=== PATIENT | male | born 1960 | race African-American/Black ===

== ENCOUNTER 2019-04-01 11:24 | Inpatient (IN) | payer OTHER ==
[2019-04-01 13:00] VITALS: BMI 30.9
--- NOTE | 2019-04-01 13:46 | HP ---
CIWA Score - Admission Criteria OASAS Guidelines: Admission for Medically Managed Detox: Requires at least one of the followin. CIWA greater than 12 2. Seizures within the past 24 hours 3. Delirium tremens within the past 24 hours 4. Hallucinations within the past 24 hours 5. Acute intervention needed for co occurring medical disorder 6. Acute intervention needed for co occurring psychiatric disorder 7. Severe withdrawal that cannot be handled at a lower level of care (continued vomiting, continued diarrhea, abnormal vital signs) requiring intravenous medication and/or fluids 8. Admitting History and Physical - Admission Chief Complaint: Wants rehab from crack cocaine History of Present Illness: Pt is a 59 yo M with PMHx of DM, HTN, depression, psychosis, Pt had gone to [facility] for 2 weeks, felt suicidal and was referred to outpt in [facility]. Pt has still been using cocaine off and on despite being in the program Had been to [facility] re[facility] 2008, has not gone to other rehab Crack cocaine Last use was Saturday when he used 1 bag Smokes, does not sniff or skin pop Uses about 2-3 bags per day , 2 to 3 times a week Spends 20-30 dollars up to 80 dollars Started using at 27yo, off and on Recent relapse February 2019 after seeing someone spoke Clean from 2009- 2018 by going to meeting Tobacco Smokes 3-4 a day Has been smoking since 20 years Smoked 3-4 /day the whole Used to drink alcohol in 0s but has since stopped Does not do any other drugs 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, Cindy [facility] crack No problems with law PSHx;None All: None On abilify, depakote, amlodipine, metformin used all meds today FHX Has grown sons-35, 36yrs Has family- Sister, mother and brother Nobody with addictions Social Hx Lives alone at [address] [facility] adult home Goes to [facility], [address] [place], for the past 1 month Has a onsite case manager and gets his medications administered No suicidal or homicidal ideations 2006 popped pills in attempted suicide, he walked to [facility] and was sent elsewhere Mukesh Delarosa [facility] is psychiatrist- No recent HIV test or hepatitis No PPD History Source: Patient Admission ROS [facility] - HPI Allergies/Adverse Reactions: Allergies Allergy/AdvReac Type Severity Reaction Status Date / Time No Known Allergies Allergy Verified 04/01/19 12:47 - Ebola screening Have you traveled outside of the country in the last 21 days: No Have you had contact with anyone from an Ebola affected area: No Do you have a fever: No - Review of Systems Constitutional: No Symptoms Reported EENT: reports: No Symptoms Reported, Other (wears bifocal glasses, now broken) Respiratory: reports: No Symptoms reported Cardiac: reports: No Symptoms Reported GI: reports: No Symptoms Reported : reports: No Symptoms Reported Musculoskeletal: reports: No Symptoms Reported Integumentary: reports: No Symptoms Reported Neuro: reports: No Symptoms reported Hematology: reports: No Symptoms Reported Psychiatric: reports: No Sypmtoms Reported Patient History - Patient Medical History Hx Hypertension: Yes Hx Diabetes: Yes Hx Depression: Yes Other Medical History: Psychosis - Patient Surgical History Past Surgical History: No - Reproductive History Patient is a Female of Child Bearing Age (11 -55 yrs old): No - Smoking Cessation Smoking history: Current every day smoker Have you smoked in the past 12 months: Yes Hx Chewing Tobacco Use: No Initiated information on smoking cessation: Yes 'Breaking Loose' booklet given: 04/01/19 - Substance & Tx. History Hx Alcohol Use: No Hx Substance Use: Yes Substance Use Type: Cocaine Hx Substance Use Treatment: Yes - Substances abused Crack Other (specify): cocaine Substance route: Smoking Frequency: 3-6 times per week Amount used: 40 to 80 dollars Age of first use: 27 Date of last use: 03/29/19 Admission Physical Exam [facility] Vital Signs Vital Signs: Vital Signs - 24 hr 04/01/19 04/01/19 12:46 13:30 Temperature 97.4 F L 97.4 F L Pulse Rate 74 74 Respiratory 16 16 Rate Blood Pressure 129/71 129/71 - Physical General Appearance: Yes: No Apparent Distress HEENTM: Yes: Other (Poor dentition, missing upper teeth) Respiratory: Yes: Chest Non-Tender, Lungs Clear, Normal Breath Sounds Neck: Yes: Within Normal Limits Breast: Yes: Breast Exam Deferred Cardiology: Yes: Regular Rhythm, Regular Rate, S1, S2 Abdominal: Yes: Within Normal Limits Genitourinary: Yes: Within Normal Limits Back: Yes: Within Normal Limits Musculoskeletal: Yes: Within Normal Limits Extremities: Yes: Other (calluses, dry scaling, tinea unguum) Neurological: Yes: Within Normal Limits Integumentary: Yes: Within Normal Limits Lymphatic: Yes: Within Normal Limits - Diagnostic (1) Crack cocaine use Current Visit: Yes Status: Acute Cleared for Admission S - Detox or Rehab [facility] Level of Care: Medically Supervised Claeared for Rehab Admission: Yes Screened but not Admitted - Documentation of Visit Screened but not Admitted: No Breathalyzer - Breathalyzer Breathalyzer: 0 Urine Drug Screen - Test Device Lot number: [id number] Expiration date: 12/03/20 - Control Is test valid?: Yes - Results Drug screen NEGATIVE: No Urine drug screen results: ABDON-Cocaine Inpatient Rehab Admission - Rehab Decision to Admit Inpatient rehab admission?: Yes - Initial Determination Are CD services needed?: Yes Free of communicable disease: Yes Not in need of hospitalization: Yes - Rehab Admission Criteria Previous failed treatment: Yes Poor recovery environment: Yes Comorbidities: Yes Lacks judgement: Yes Patient is meeting Inpatient Rehab admission criteria:: Yes
[2019-04-01] MEDS ORDERED: IBUPROFEN 400 MG TABLET (FP) PO PRN (14:10)
[2019-04-01] MEDS ORDERED: MAG HYDROX/AL HYDROX/SIMETH 30 ML UNIT-DOSE CUP PO PRN (14:10)
[2019-04-01] MEDS ORDERED: P-EPHED 60MG/TRIPROLIDI 2.5MG TABLET PO PRN (14:10)
[2019-04-01] MEDS ORDERED: MAGNESIUM CITRATE 300 ML BOTTLE PO PRN (14:10)
[2019-04-01] MEDS ORDERED: guaiFENesin 200 MG/10 ML 10 ML UNIT-DOSE CUPS PO PRN (14:10)
[2019-04-01] MEDS ORDERED: MENTHOL/PHENOL 1 EACH UD MM PRN (14:10)
[2019-04-01] MEDS ORDERED: ACETAMINOPHEN 325 MG TABLET (FP) PO PRN (14:10)
[2019-04-01] MEDS ORDERED: NICOTINE POLACRILEX 2 MG GUM BUC PRN (14:10)
[2019-04-01] MEDS ORDERED: LOPERAMIDE HCL 2 MG CAPSULE PO PRN (14:10)
[2019-04-01] MEDS ORDERED: MAGNESIUM HYDROX 2400MG/30ML ORAL SUSPENSION 30 ML CUP PO PRN (14:10)
--- NOTE | 2019-04-01 14:19 | PN ---
Teaching Attending Note Name of Resident: Stephani Velásquez ATTENDING PHYSICIAN STATEMENT I saw and evaluated the patient. I reviewed the resident's note and discussed the case with the resident. I agree with the resident's findings and plan as documented. SUBJECTIVE: pt here requesting rehab from cocaine use , reprots relapse in february 2019 after 9 yr sobriety , had suicidal ideation after cocaine use and presented to [facility] ER , transferred to [facility] where he remaind x 2 weeks, states he was referred to outpt program afterwards [facility], he attended and continued use of cocaine 2- 3 x /week x 2 bags , w/ latest reported use 03/29/19 . reports he lives in adult home [facility] where meds are dispensed to him daily by staff and he is being monitored for blood glucose . PMHx : DM, HTN , depression denies current SI / HI Vital Signs - 24 hr 04/01/19 04/01/19 12:46 13:30 Temperature 97.4 F L 97.4 F L Pulse Rate 74 74 Respiratory 16 16 Rate Blood Pressure 129/71 129/71 OBJECTIVE: wnwd ASSESSMENT AND PLAN: Cocaine use , episodic use .
[2019-04-01 17:20] LABS: HEMATOCRIT 42.1 % (35.4-49); HEMOGLOBIN 13.7 GM/dL (11.7-16.9); MCH 33.3 pg (25.7-33.7); MCHC 32.6 g/dl (32.0-35.9); MEAN CELL VOLUME 102.3 fl (80-96); MEAN PLT VOLUME 7.7 fl (7.5-11.1); PLATELET COUNT 307 K/MM3 (134-434); RBC 4.12 M/mm3 (4.00-5.60); RDW 12.8 % (11.9-15.9); WHITE BLOOD COUNT 10.9 K/mm3 (4.0-10.0)
[2019-04-01 17:31] LABS: BILIRUBIN,TOTAL 0.2 mg/dL (0.2-1); BLOOD UREA NITROGEN 15.4 mg/dL (7-18); POTASSIUM 3.7 mmol/L (3.5-5.1); TOT PROT 7.8 g/dl (6.4-8.2)
[2019-04-01] MEDS ORDERED: TUBERCULIN PPD 5 TU/0.1ML VIAL ID ONE ×2 (21:02→21:04)
[2019-04-01] MEDS: THIAMINE HCL 100 MG TABLET (FP) PO SCH (21:21)
[2019-04-01] MEDS ORDERED: ARIPiprazole 5 MG TABLET (FP) PO SCH (22:00)
[2019-04-01] MEDS ORDERED: MELATONIN 5 MG TABLETS PO PRN (22:00)
[2019-04-02] MEDS: metFORMIN HCL 500 MG TABLET (FP) PO SCH (06:21)
--- NOTE | 2019-04-02 08:30 | CONSULT ---
[facility] Psychiatric Consult - Data Date of interview: 04/02/19 Admission source: [facility] Identifying data: Patient is a 59 year old male, , father of two, unemployed, domiciled, and is supported by [facility]. This is one multiple admissions for patient. Patient admitted to for cocaine dependence. Substance Abuse History: Smoking Cessation. Smoking history: Current every day smoker. Have you smoked in the past 12 months: Yes. Hx Chewing Tobacco Use: No. Initiated information on smoking cessation: Yes. 'Breaking Loose' booklet given: 04/01/19. - Substance & Tx. History. Hx Alcohol Use: No. Hx Substance Use: Yes. Substance Use Type: Cocaine. Hx Substance Use Treatment: Yes. - Substances abused. Crack. Other (specify): cocaine. Substance route: Smoking. Frequency: 3-6 times per week. Amount used: 40 to 80 dollars. Age of first use: 27. Date of last use: 03/29/19 Medical History: diabetes, hypertension Psychiatric History: Patient's first psychiatric contact was in 2010 at [facility] after he overdosed on a bottle pills. He was diagnosed with depression/psychosis and prescribed psychotropic medications. Mr. Evans reports two additional hospitalizations in 2018 at [facility] and then [facility] due to thoughts of suicide. Reports being diagnosed with Bipolar disorder Mr. Evans is currently provided with psychiatric care by Dr. Mukesh Carrera at [facility] and by Dr. Lopez at his residental at [facility]. He reports taking Abilify 5mg daily + Depakote 500mg HS. Patient reports history of auditory hallucinations, most recently last year. At present patient reports stable mood and denies auditory/visual hallucinations. Physical/Sexual Abuse/Trauma History: denies. Mental Status Exam - Mental Status Exam Alert and Oriented to: Time, Place, Person Cognitive Function: Good Patient Appearance: Well Groomed Mood: Withdrawn Affect: Flat Patient Behavior: Fatigued, Cooperative Speech Pattern: Clear Voice Loudness: Mildly Soft/Quiet Thought Process: Goal Oriented Thought Disorder: Not Present Hallucinations: Denies Suicidal Ideation: Denies Homicidal Ideation: Denies Insight/Judgement: Poor Sleep: Fair Appetite: Fair Muscle strength/Tone: Normal Gait/Station: Normal Psychiatric Findings - Problem List ([place] 1, 2,3) (1) Substance induced mood disorder Current Visit: Yes Status: Acute (2) Mood disorder Current Visit: Yes Status: Chronic (3) Schizoaffective disorder Current Visit: No Status: Suspected Qualifiers: Schizoaffective disorder type: depressive Qualified Code(s): F25.1 - Schizoaffective disorder, depressive type (4) Cocaine use disorder Current Visit: Yes Status: Chronic - Initial Treatment Plan Initial Treatment Plan: Psychoeducation provided. Rehab in progress. Will order Abilify 5mg daily + Depakote 500mg ER HS. Benefits and side effects discussed. Verbal consent given.
[2019-04-02] MEDS: PRENATAL VITAMINS W/ FOLIC ACID TABLET (FP) PO SCH (09:39)
[2019-04-02] MEDS: amLODIPine BESYLATE 10 MG TABLET (FP) PO SCH (09:40)
[2019-04-02] MEDS: ARIPiprazole 5 MG TABLET (FP) PO SCH (09:42)
[2019-04-02] MEDS ORDERED: DIVALPROEX SODIUM 500 MG TABLET E.C. PO SCH (10:00)
[2019-04-02 13:01] LABS: PH,URINE 6.5 (5.0-8.0); URINE APPEARANCE CLEAR; URINE BILIRUBIN NEGATIVE (NEGATIVE); URINE COLOR YELLOW; URINE GLUCOSE (UA) NEGATIVE (NEGATIVE); URINE KETONE NEGATIVE (NEGATIVE); URINE LEUK ESTERASE NEGATIVE (NEGATIVE); URINE NITRITE NEGATIVE (NEGATIVE); URINE PROTEIN NEGATIVE (NEGATIVE)
[2019-04-02] MEDS: THIAMINE HCL 100 MG TABLET (FP) PO SCH (21:19)
[2019-04-02] MEDS: DIVALPROEX NA *ER* EXTEND REL 500 MG TABLET.SA (FP) PO SCH (21:19)
[2019-04-03] MEDS: metFORMIN HCL 500 MG TABLET (FP) PO SCH (06:30)
[2019-04-03] MEDS: PRENATAL VITAMINS W/ FOLIC ACID TABLET (FP) PO SCH (10:21)
[2019-04-03] MEDS: ARIPiprazole 5 MG TABLET (FP) PO SCH (10:21)
[2019-04-03] MEDS: amLODIPine BESYLATE 10 MG TABLET (FP) PO SCH (10:21)
[2019-04-03] MEDS: DIVALPROEX NA *ER* EXTEND REL 500 MG TABLET.SA (FP) PO SCH (21:15)
[2019-04-03] MEDS: THIAMINE HCL 100 MG TABLET (FP) PO SCH (21:15)
[2019-04-04] MEDS: metFORMIN HCL 500 MG TABLET (FP) PO SCH (06:34)
[2019-04-04] MEDS: amLODIPine BESYLATE 10 MG TABLET (FP) PO SCH (09:49)
[2019-04-04] MEDS: PRENATAL VITAMINS W/ FOLIC ACID TABLET (FP) PO SCH (09:49)
[2019-04-04] MEDS: ARIPiprazole 5 MG TABLET (FP) PO SCH (09:50)
[2019-04-04] MEDS: DIVALPROEX NA *ER* EXTEND REL 500 MG TABLET.SA (FP) PO SCH (21:20)
[2019-04-04] MEDS: THIAMINE HCL 100 MG TABLET (FP) PO SCH (21:20)
[2019-04-05] MEDS: metFORMIN HCL 500 MG TABLET (FP) PO SCH (06:17)
[2019-04-05] MEDS: PRENATAL VITAMINS W/ FOLIC ACID TABLET (FP) PO SCH (09:54)
[2019-04-05] MEDS: ARIPiprazole 5 MG TABLET (FP) PO SCH (09:54)
[2019-04-05] MEDS: amLODIPine BESYLATE 10 MG TABLET (FP) PO SCH (09:54)
[2019-04-05] MEDS: THIAMINE HCL 100 MG TABLET (FP) PO SCH (21:10)
[2019-04-05] MEDS: DIVALPROEX NA *ER* EXTEND REL 500 MG TABLET.SA (FP) PO SCH (21:10)
[2019-04-06] MEDS: metFORMIN HCL 500 MG TABLET (FP) PO SCH (06:14)
[2019-04-06 06:59] VITALS: TEMP 97.7
[2019-04-06] MEDS: ARIPiprazole 5 MG TABLET (FP) PO SCH (10:38)
[2019-04-06] MEDS: amLODIPine BESYLATE 10 MG TABLET (FP) PO SCH (10:38)
[2019-04-06] MEDS: PRENATAL VITAMINS W/ FOLIC ACID TABLET (FP) PO SCH (10:38)
[2019-04-06] MEDS: THIAMINE HCL 100 MG TABLET (FP) PO SCH (21:18)
[2019-04-06] MEDS: DIVALPROEX NA *ER* EXTEND REL 500 MG TABLET.SA (FP) PO SCH (21:18)
[2019-04-07] MEDS: metFORMIN HCL 500 MG TABLET (FP) PO SCH (06:10)
[2019-04-07 06:49] VITALS: BP 109/56; PULSE 69
[2019-04-07] MEDS: ARIPiprazole 5 MG TABLET (FP) PO SCH (10:39)
[2019-04-07] MEDS: amLODIPine BESYLATE 10 MG TABLET (FP) PO SCH (10:39)
[2019-04-07] MEDS: PRENATAL VITAMINS W/ FOLIC ACID TABLET (FP) PO SCH (10:39)
--- NOTE | 2019-04-07 11:15 | DS ---
[facility] Rehab Discharge Summary - [facility] Rehab Discharge Summary Admission Date: 04/01/19 Discharge Date: 04/07/19 - History Present History: Cocaine dependence Additional Comments: Pt is a 59 y/o male with a hx of JOE admitted to rehab on 04/01/19 and requesting an early discharge stating "I don't wanna be inpatient rehab anymore , I prefer to go outpatient". Pt would like to go back to his clinic[facility] at [address] [place] [address] for CD aftercare treatment. Pt reports he was ok but recently relapsed briefly and was told to come in for treatment and now wants to go back to outpatient. Pt libbyrts he has primary care at his adult Home residence located at [address] [place] [address] and has doctors who attend to their medical needs. Pertinent Past History: HTN(on med) DM(on med) - Discharge Physical Exam Vital Signs: Vital Signs Temperature 97.7 F 04/07/19 06:49 Pulse Rate 69 04/07/19 06:49 Respiratory Rate 18 04/07/19 06:49 Blood Pressure 109/56 L 04/07/19 06:49 O2 Sat by Pulse Oximetry (%) Alert o x 3 nad oob ambulating with steady gait cardiac:s1 s2,rrr lungs:cta,jamia. abdomen:soft,+fatty,nt,+bs extremities/skin:no edema,full ROM/weight bearing;skin intact. Bilateral unintentional rhythmic hand tremors from wrist to fingers.(Pt reports chronicity ) Pertinent Admission Physical Exam Findings: Laboratory Tests 04/01/19 04/01/19 04/01/19 14:00 14:00 14:00 WBC 10.9 H RBC 4.12 Hgb 13.7 Hct 42.1 MCV 102.3 H MCH 33.3 MCHC 32.6 RDW 12.8 Plt Count 307 MPV 7.7 Sodium 138 Potassium 3.7 Chloride 107 Carbon Dioxide 25 Anion Gap 7 L BUN 15.4 Creatinine 1.0 Est GFR (CKD-EPI)AfAm 96.40 Est GFR (CKD-EPI)NonAf 83.18 POC Glucometer Random Glucose 125 H Calcium 9.0 Total Bilirubin 0.2 AST 14 L ALT 27 Alkaline Phosphatase 83 Total Protein 7.8 Albumin 4.0 Urine Color Urine Appearance Urine pH Ur Specific [place] Urine Protein Urine Glucose (UA) Urine Ketones Urine Blood Urine Nitrite Urine Bilirubin Urine Urobilinogen Ur Leukocyte Esterase RPR Titer Nonreactive Hep C Ab Diagnostic HIV 1&2 Ag/Ab, 4th Gen HIV 1&2 Antibody Screen HIV P24 Antigen 04/01/19 04/01/19 04/01/19 14:00 14:00 14:00 WBC RBC Hgb Hct MCV MCH MCHC RDW Plt Count MPV Sodium Potassium Chloride Carbon Dioxide Anion Gap BUN Creatinine Est GFR (CKD-EPI)AfAm Est GFR (CKD-EPI)NonAf POC Glucometer Random Glucose Calcium Total Bilirubin AST ALT Alkaline Phosphatase Total Protein Albumin Urine Color Urine Appearance Urine pH Ur Specific [place] Urine Protein Urine Glucose (UA) Urine Ketones Urine Blood Urine Nitrite Urine Bilirubin Urine Urobilinogen Ur Leukocyte Esterase RPR Titer Hep C Ab Diagnostic 0.1 HIV 1&2 Ag/Ab, 4th Gen Non reactive HIV 1&2 Antibody Screen Cancelled HIV P24 Antigen Cancelled 04/01/19 04/02/19 04/04/19 14:40 07:57 06:33 WBC RBC Hgb Hct MCV MCH MCHC RDW Plt Count MPV Sodium Potassium Chloride Carbon Dioxide Anion Gap BUN Creatinine Est GFR (CKD-EPI)AfAm Est GFR (CKD-EPI)NonAf POC Glucometer 98 93 Random Glucose Calcium Total Bilirubin AST ALT Alkaline Phosphatase Total Protein Albumin Urine Color Yellow Urine Appearance Clear Urine pH 6.5 Ur Specific [place] 1.025 Urine Protein Negative Urine Glucose (UA) Negative Urine Ketones Negative Urine Blood Negative Urine Nitrite Negative Urine Bilirubin Negative Urine Urobilinogen 1.0 Ur Leukocyte Esterase Negative RPR Titer Hep C Ab Diagnostic HIV 1&2 Ag/Ab, 4th Gen HIV 1&2 Antibody Screen HIV P24 Antigen 04/05/19 04/06/19 04/07/19 06:16 06:13 06:09 WBC RBC Hgb Hct MCV MCH MCHC RDW Plt Count MPV Sodium Potassium Chloride Carbon Dioxide Anion Gap BUN Creatinine Est GFR (CKD-EPI)AfAm Est GFR (CKD-EPI)NonAf POC Glucometer 80 123 110 Random Glucose Calcium Total Bilirubin AST ALT Alkaline Phosphatase Total Protein Albumin Urine Color Urine Appearance Urine pH Ur Specific [place] Urine Protein Urine Glucose (UA) Urine Ketones Urine Blood Urine Nitrite Urine Bilirubin Urine Urobilinogen Ur Leukocyte Esterase RPR Titer Hep C Ab Diagnostic HIV 1&2 Ag/Ab, 4th Gen HIV 1&2 Antibody Screen HIV P24 Antigen - Treatment Discharge Condition: Discharge condition good Hospital Course: Rehabilitated safely CD aftercare referral accepted - Medication Discharge Medications: Ambulatory Orders Amlodipine Besylate [Norvasc -] 10 mg PO DAILY 04/01/19 Aripiprazole [Abilify] 5 mg PO HS 04/01/19 Divalproex [Depakote -] 500 mg PO DAILY 04/01/19 Metformin HCl [Glucophage] 500 mg PO DAILY 04/01/19 - Medication-Assisted Treatment (MAT) Medication-Assisted Treatment (MAT): No - Discharge Instructions Diet, activity, other medical instructions: Diet:AVANI/NCS Activity: oob ad tiffanie Other medical instructions:follow up with your primary care providers as above for medical management after discharge. Follow up with CD aftercare referral with [facility] as scheduled. - Diagnosis (1) Crack cocaine use Status: Chronic (2) Cocaine use disorder Status: Chronic (3) Type 2 diabetes mellitus Status: Chronic Qualifiers: Diabetes mellitus chcf insulin use: without termination clerk use (4) Tremor of both hands Status: Chronic - Follow-up Referral Minutes to complete discharge: 25 - AMA Did Patient Leave Against Medical Advice: No Additional Comments: Pt reports his meds are kept by staff at the residence where he stays and will not be needing any courtesy Rx.
== END 2019-04-07 11:45 | disposition home or self-care (01) | DRG 772 ==
LOC: YASAS 11:24 → Y5N 14:32
PROVIDERS: ADMIT Neuromusculoskeletal Medicine & OMM; ATTEND Neuromusculoskeletal Medicine & OMM
PROC: HZ42ZZZ Group Counseling for Substance Abuse Treatment, Cognitive-Behavioral (ICD-10-PCS; principal; 2019-04-01)
DX: F14.20 Cocaine dependence, uncomplicated (principal); F17.210 Nicotine dependence, cigarettes, uncomplicated; F25.1 Schizoaffective disorder, depressive type; F19.24 Other psychoactive substance dependence with psychoactive substance-induced mood disorder; F39 Unspecified mood [affective] disorder; I10 Essential (primary) hypertension; E11.9 Type 2 diabetes mellitus without complications; Z79.84 Long term (current) use of oral hypoglycemic drugs; R25.1 Tremor, unspecified
CPT/HCPCS: 36415; 80053; 81003; 82962; 85027; 86593; 86803; 87389